=== PATIENT | female | born 1970 | race Caucasian/White ===

== ENCOUNTER 2018-06-04 09:00 | Day surgery (SDC) | payer BC ==
[~2018-06-04] VITALS: Ht 154.9 cm; Wt 62.3 kg
[~2018-06-04 09:00] MED LIST: ALPR1TAB7 PO; CITA10TA10 PO; EMTR1TAB11 PO; ISEN400 PO; NORCO
--- NOTE | 2018-06-04 10:37 | PREAC ---
Date/Time of Note Date/Time of Note DATE: 06/04/18 TIME: 10:36 Anesthesia Eval and Record Evaluation Time Pre-Procedure Interview DATE: 06/04/18 TIME: 10:36 Age 47 Sex female NPO: 8 hrs Preoperative diagnosis GERD Planned procedure EGD Colonoscopy Past Medical History Past Medical History: Includes Cardio: Dyslipidemia GI: GERD Heme: Anemia Psych: Anxiety Infection(s): HIV Surgery & Anesthesia Issues No known issue Meds Anticoagulation: No Beta Elle within 24 hr: No Reason Beta Elel not given: Pt. not on B-Elle Reported Medications [[place] ] No Conflict Check, PRN for PAIN 01/08/16 Citalopram Hydrobromide* (Celexa*) 10 Mg Tablet, 10 MG PO DAILY, #30 TAB 09/28/15 Alprazolam* (Alprazolam*) 1 Mg Tablet, 1 MG PO BID PRN for ANXIETY, TAB 09/28/15 Raltegravir Potassium* (Isentress*) 400 Mg Tablet, 400 MG PO BID, TAB 09/28/15 Emtricitabine-Tenofovir* (Truvada*) 200-300 Mg Tablet, 1 TAB PO DAILY, TAB 09/28/15 Meds reviewed: Yes Allergies Coded Allergies: No Known Allergy (Verified Allergy, Unknown, 08/17/06) Allergies Reviewed: Yes Labs/Studies Labs Reviewed: Reviewed by anesthesiologist test: Negative Studies: ECG Pre-procedure Exam Airway: Adequate mouth opening, Adequate thyromental dist Mallampati: Mallampati II Teeth: Normal Lung: Normal Heart: Normal ASA Physical Status ASA physical status: 3 Emergency: None Planned Anesthetic General/MAC: Mask, MAC Pre-operative Attestations Prior to commencing anesthesia and surgery, the patient was re-evaluated, there was verification of: *The patient's identity *The results of appropriate recent lab work and preoperative vital signs *The above evaluation not changing prior to induction *Anesthetic plan, risk benefits, alternative and complications discussed with patient/family; questions answered; patient/family understands, accepts and wishes to proceed. CHAS MILLER Jun 04, 2018 10:37
[2018-06-04] MEDS ORDERED: lasix (10:39)
[2018-06-04] MEDS ORDERED: gabapentin (10:39)
[2018-06-04] MEDS ORDERED: norco (10:39)
[2018-06-04] MEDS ORDERED: iron (10:39)
[2018-06-04] MEDS ORDERED: truvada (10:39)
[2018-06-04] MEDS ORDERED: potassium chloride (10:40)
[2018-06-04] MEDS ORDERED: trazadone (10:40)
[2018-06-04] MEDS ORDERED: AZITHROMYCIN (10:40)
[2018-06-04] MEDS ORDERED: ISENTRESS (10:40)
[2018-06-04] MEDS ORDERED: PROPOFOL 40 ML ONE (10:42)
[2018-06-04 10:45] VITALS: Ht 154.9 cm; Wt 62.3 kg
[2018-06-04 10:48] VITALS: BP 136/85; PULSE 78; RESP 18
--- NOTE | 2018-06-05 14:35 | PAC ---
Date/Time of Note Date/Time of Note DATE: 06/05/18 TIME: 14:35 Post-Anesthesia Notes Post-Anesthesia Note Last documented vital signs Vital Signs Date Temp Pulse Resp B/P (MAP) Pulse Ox O2 O2 Flow FiO2 Time Delivery Rate 06/04/18 98.3 78 18 136/85 98 Room Air 10:48 (102) Activity: WNL Respiratory function: WNL Cardiovascular function: WNL Mental status: Baseline Pain reasonably controlled: Yes Hydration appropriate: Yes Nausea/Vomiting absent: Yes CHAS MILLER Jun 05, 2018 14:35
== END 2018-06-04 12:24 | disposition home or self-care (01) ==
LOC: GIL 09:00
PROVIDERS: ATTEND Internal Medicine Gastroenterology
DX: R10.10 Upper abdominal pain, unspecified (principal); K64.8 Other hemorrhoids
CPT/HCPCS: 43239; 45378; Z7610; 88305